=== PATIENT | female | born 1980 | race Caucasian/White ===

== ENCOUNTER → 2016-06-11 | Day surgery (SDC) | payer OTHER ==
[~2016-06-11] MED LIST: HYDROCODONE/APAP 5/325 TAB PO PRN; IBUPROFEN 600 MG TAB PO ONE; LIDOCAINE 1% 30 ML SDV SC PRN; LIDOCAINE 2% 5 ML SDV ONE; MIDAZOLAM 2 MG/2 ML VIAL IVP ONE; MIDAZOLAM 2 MG/2 ML VIAL ONE; ONDANSETRON 4 MG/2 ML VIAL ONE; PROPOFOL/EMULSION 500 MG/50 ML BOTTLE IV ONE; fentaNYL 100 MCG/2 ML INJ ONE; metroNIDAZOLE 500 MG TAB PO SCH
--- NOTE | 2016-06-11 19:26 | GHP ---
[f rep st] HISTORY AND PHYSICAL DATE OF ADMISSION: 06/11/2016 CHIEF COMPLAINT: Vaginal bleeding with known miscarriage. HISTORY OF PRESENT ILLNESS: The patient is a 36-year-old 3, para 1-0-1-1 female at 9 weeks a nd 1 day estimated gestational age by stated IVF dating at [facility], presents for a followup for a missed . The patient was diagnosed with a missed last week at her infertility clinic and then was seen at our clinic on June 08, 2016 at which time it was confirmed that she had a missed with a crown rump length measuring 0.45 cm consistent with 6 weeks and 1 day estimated gesta tional age with no cardiac activity seen. There was a significantly large subchorionic hemorrh age at that time measuring 9 x 5 cm surrounding the sac. She was having slight bleeding, which she h ad for the last 2-3 weeks of her , but was only very light in nature. She was offered treat ment options at that time and she desired to proceed with surgical management with a D and C, which w as scheduled for tomorrow, June 12, 2016. She represented today on the day of admission with ifrah rt that she thought she completed the miscarriage over the weekend. She reports that she had intense cramping and passage of significant amounts of brown clot and old hemorrhage after our visit last we ek, followed by heavy bleeding for the next 2 hours that then subsequently slowed down. She currentl y reports her bleeding has decreased significantly, only requiring a pad every 6 hours. She has no c ramping and has no other complaints. She denies any lightheadedness or dizziness. The patient was evaluated in clinic and found to have tissue at the os, which was removed with a ring forceps, that appeared globular consistent with a suspected gestational sac. After removal of that tissue, the cervical opening was only 1-2 mm open and no active bright red bleeding was initially not ed. An ultrasound was then done in clinic showing retained tissue with a heterogenous lining measuri ng 1.3 cm wide x 3.1 cm long on sagittal views. The endometrial stipe measures up to 2.1 cm at the m ost in thickness with a small, hypoechoic area measuring 1.2 cm, possibly consistent with a persisten t retained sac. There is no free fluid or adnexal masses. PAST MEDICAL HISTORY: Subglottic stenosis, repaired, celiac disease, ITP, hyperlipidemia, gluten int olerance, cervical dysplasia. PAST SURGICAL HISTORY: Balloon dilation of the trachea, delivery, appendectomy and LEEP. FAMILY HISTORY: Noncontributory. SOCIAL HISTORY: The patient is and denies any tobacco, alcohol or drug use. ALLERGIES: Gluten, ioversol, doxycycline, iodine and azithromycin. PHYSICAL EXAMINATION: VITAL SIGNS: Blood pressure 110/72, pulse 70, weight 138 pounds. GENERAL: N o acute distress, well-developed, well-nourished female. CARDIOVASCULAR: Regular rate and rhythm. CHEST: Clear to auscultation bilaterally. ABDOMEN: Soft and nontender. PELVIC: Speculum placed: Cervix was initially slightly dilated with tissue at the os which was removed and sent to pathology. Cervix then closed to 1 mm. No significant active bleeding noted. RADIOLOGY: Ultrasound results as described in HPI. ASSESSMENT: The patient is a 36-year-old 3, para 1-0-1-1 female with an incomplete , currently hemodynamically stable. She was counseled extensively regarding the recommendation to pro ceed with either medical management with misoprostol or surgical management with a suction D and C to remove the remaining tissue, blood and/or clot seen on ultrasound today. All the risks, benefits, i ndications and alternatives of each method were reviewed in length, and she desires to proceed with s urgical management tonight. PLAN: 1. Admit to labor and delivery for surgery. 2. Plan suction dilation and curettage to remove all remaining tissue. 3. Antibiotics: Plan Flagyl 500 mg IV on-call to the operating room and will continue with Flagyl 5 00 mg b.i.d. for 5 days total due to her allergy to doxycycline and azithromycin. 4. Blood type A positive. Will do type and screen and CBC on admission. 5. Counseling. The patient was counseled extensively and all questions answered. Consents were joanna musa reviewed for suction dilation and curettage during her prior visit and these were reviewed again and questions answered. All risks, benefits, indications and alternatives of the surgery were revie wed to include risks of infection, bleeding, uterine perforation, damage to surrounding structures an d organs and the benefit is completion of miscarriage. DISPOSITION: I have turned care over to my partner, Dr. Sadie iWlcox, and she is in discussion with Anesthesia as to when to proceed with the surgery. If she becomes unstable or the bleeding becomes heavy, will proceed urgently with the surgery as needed. /[id number]/MODL
[2016-06-11 22:24] LABS: % IMMATURE GRANULYOCYTES 0.2 % (0.0-1.1); ABSOLUTE IMMATURE GRANULOCYTES 0.01 10^3/uL (0.00-0.10); ADD DIFF? NO; ADD MORPH? NO; ADD SCAN? NO; ATYPICAL LYMPHOCYTE FLAG 40 (0-99); FRAGMENT RBC FLAG 0 (0-99); HEMATOCRIT 37.8 % (38.0-47.0); HEMOGLOBIN 13.5 g/dL (12.6-16.3); LEFT SHIFT FLG 0 (0-99); LIPEMIA HEMOLYSIS FLAG 90 (0-99); MEAN CELL HEMOGLOBIN 30.7 pg (27.9-34.1); MEAN CELL HEMOGLOBIN CONCENTR. 35.7 g/dL (32.4-36.7); MEAN CELL VOLUME 85.9 fL (81.5-99.8); MEAN PLATELET VOLUME 13.1 fL (8.7-11.7); PLATELET CLUMPS FLAG 0 (0-99); PLATELET COUNT 81 10^3/uL (150-400); RED CELL DISTRIBUTION WIDTH 13.4 % (11.5-15.2)
--- NOTE | 2016-06-11 23:41 | SUROPNOTE ---
[facility] Operative Report - Surgery Technical Sales Manager Procedure Note 06/11/16 Procedure: suction dilation and curettage Pre-operative diagnosis: Incomplete spontaneous Post-operative diagnosis: Same Anesthesia: MAC Anesthesiologist: Sophie Surgeon: Brenden Findings: small anteverted uterus. Cervix already dilated to ~ 9-10 mm. Dark blood and products of conception removed. EBL: Minimal Specimen: POC Fluids: 500 ml LR Indications: Patient is a 36 yo with an IVF found to be demised at 9 weeks gestation, with the pole measuring 6 weeks and a large subchorionic hemorrhage. She had been scheduled for surgical management tomorrow , but then presented to clinic today with spontaneous passage of tissue. Her cervix was dilated and the likely gestational sac was removed in the office. An US was done demonstrating the ongoing presence of blood clot and tissue in the uterus, so the recommendation was made to proceed with suction dilation and curettage for incomplete SAB. Rh positive. Details of procedure: Pt was brought to the operating room and a time out was performed. MAC anesthesia was induced. IV flagyl was given due to doxy/azithro allergy. She was prepped and draped in the normal sterile fashion, using chlohexidate externally and reinaldo soap in water internally due to her iodine allergy. She had previously emptied her bladder. The speculum was placed and single toothed tenaculum was placed on the anterior lip of the cervix and a paracervical block was performed, total of 20 ml 1% plain lidocaine. Her cervix was found to be already dilated enough to easily accommodate an 8 mm curette. The curette was introduced and suction was employed to empty the uterus. Dark blood clot and tissue was removed until the uterus was found to have a gritty texture throughout. All instruments were removed and hemostasis was noted after using silver nitrate on the tenaculum sites. counts correct x 2. Pt was awakened and brought to the recovery room in stable condition. Sadie Wilcox MD
== END | disposition home or self-care (01) ==
LOC: FOBOP 18:12 → UNDOADMOB 18:12 → FLD 18:12 → EDSTATUS 20:11
PROVIDERS: ATTEND Obstetrics & Gynecology
PROC: 10D17ZZ Extraction of Products of Conception, Retained, Via Natural or Artificial Opening (ICD-10-PCS; principal; 2016-06-11)
DX: O03.1 Delayed or excessive hemorrhage following incomplete spontaneous abortion (principal); J98.8 Other specified respiratory disorders
CPT/HCPCS: J2250; J2405; J2704; J3010

== ENCOUNTER → 2016-08-18 | Outpatient (CLI) | payer OTHER | LOC: BMCIMAGING 15:48 | PROVIDERS: ATTEND Family Medicine | DX: S99.922A Unspecified injury of left foot, initial encounter (principal) ==

== ENCOUNTER 2017-05-03 16:14 | Emergency (ER) | payer OTHER ==
[2017-05-03] MEDS ORDERED: NS 1,000 ML IV ONE (16:45)
[2017-05-03] MEDS ORDERED: ONDANSETRON 4 MG/2 ML VIAL IVP ONE (16:45)
[2017-05-03] MEDS ORDERED: fentaNYL 100 MCG/2 ML INJ IVP ONE (16:45)
--- NOTE | 2017-05-03 16:48 | EDPHY ---
H & P Time Seen by Provider: 05/03/17 16:33 HPI/ROS: CHIEF COMPLAINT: Abdominal pain HISTORY OF PRESENT ILLNESS: 37-year-old woman with previous history of appendectomy presents with lower abdominal pain since Saturday of this week. She started getting bilateral or middle pelvic pain earlier this week and she says she does not think it is intestinal. It is not associated with urinary symptoms or vaginal bleeding or discharge or vomiting or diarrhea. Today since about 3:00 p.m. it started radiating up to just above her umbilicus associated with worsening pain and some nausea. No recent injury. No recent fall or trauma. Symptoms moderate to severe at this time. REVIEW OF SYSTEMS: Eye: no change in vision ENT: no sore throat Cardiac: no chest pain or syncope Pulmonary: no cough or SOB Abdomen: HPI Musculoskeletal: no back pain Skin: no rash Neuro: no headache Constitutional: no fever : no urinary symptoms A comprehensive 10 point review of systems is otherwise negative aside from elements mentioned in the history of present illness. PAST MEDICAL HISTORY: Appendectomy, wisdom teeth removal, idiopathic thrombocytopenia with platelet count [id number] last week, celiac disease. Social history: No alcohol, nonsmoker General Appearance: Alert and conversant, cooperative. Eyes: No scleral icterus. ENT, Mouth: Normal mucous membranes. Respiratory: Normal respiratory effort, breath sounds equal, lungs are clear to auscultation. Cardiovascular: Regular rate and rhythm. Gastrointestinal: No rebound or guarding. Bowel sounds present. Negative Porras sign. No upper abdominal tenderness above the umbilicus. Nontender to deep palpation. Neurological: Alert and oriented x3. Normally conversant. Face symmetric, normal movement and sensation in all extremities. Skin: Warm and dry, no rashes. Musculoskeletal: No peripheral edema and no joint swelling. Psychiatric: Not agitated. Emergency Department course/MDM: Plan for fentanyl 100 mcg IV and Zofran 4 mg IV, pelvic ultrasound discussed and consented. Urinalysis. 1800: Results discussed, feels better, possibly related to her corpus luteum cyst. Toradol 15 mg IV, discharge with symptomatic control and outpatient follow-up. Negative test, has already had her appendix out, I think PID or bowel obstruction or UTI are unlikely. Patient says she is comfortable going home with symptomatic treatment, which I think is reasonable. Smoking Status: Never smoked Constitutional: Initial Vital Signs Temperature (C) 36.5 C 05/03/17 16:23 Heart Rate 85 05/03/17 16:23 Respiratory Rate 16 05/03/17 16:23 Blood Pressure 131/74 H 05/03/17 16:23 O2 Sat (%) 100 05/03/17 16:23 O2 Delivery Mode Room Air Allergies/Adverse Reactions: doxycycline Allergy (Verified 05/03/17 16:22) Abdominal Cramping gluten Allergy (Verified 05/03/17 16:22) iodine Allergy (Verified 05/03/17 16:22) ioversol Allergy (Verified 05/03/17 16:22) contrast Allergy (Intermediate, Uncoded 05/03/17 16:22) Hives Home Medications: Medication Instructions Recorded NK [No Known Home Meds] 05/03/17 Medical Decision Making - Diagnostics Imaging Results: Imaging Impressions Pelvic/Renal Ultrasound 05/03/17 16:45 Impression: Right corpus luteum and paraovarian cysts, as above. Trace free fluid which is nonspecific. Dr. Varghese discussed these findings by telephone with CARMELA JAVIER on 2016 at 17:43. Differential Diagnosis: Differential considered including but not limited to ovarian torsion, ovarian cyst, ectopic , PID, UTI or renal colic, bowel obstruction. - Data Points Laboratory Results: Laboratory Results 05/03/17 16:44 05/03/17 16:44 05/03/17 05/03/17 05/03/17 17:08 16:44 16:44 WBC RBC Hgb Hct MCV MCH MCHC RDW Plt Count MPV Neut % (Auto) Lymph % (Auto) [place] % (Auto) Eos % (Auto) Baso % (Auto) Nucleat RBC Rel Count Absolute Neuts (auto) Absolute Lymphs (auto) Absolute Monos (auto) Absolute Eos (auto) Absolute Basos (auto) Absolute Nucleated RBC Immature Gran % Immature Gran # Sodium 142 mEq/L mEq/L (134-144) Potassium 3.7 mEq/L mEq/L (3.5-5.2) Chloride 105 mEq/L mEq/L (97-110) Carbon Dioxide 23 mEq/l mEq/l (22-31) Anion Gap 14 mEq/L mEq/L (8-16) BUN 20 mg/dL mg/dL (7-23) Creatinine 0.7 mg/dL mg/dL (0.6-1.0) Estimated GFR > 60 Glucose 97 mg/dL mg/dL (70-100) Calcium 9.6 mg/dL mg/dL (8.5-10.4) Beta HCG, Qual NEGATIVE Urine Color YELLOW Urine Appearance CLEAR Urine pH 6.0 (5.0-7.5) Ur Specific [place] 1.018 (1.002-1.030) Urine Protein NEGATIVE (NEGATIVE) Urine Ketones NEGATIVE (NEGATIVE) Urine Blood 1+ H (NEGATIVE) Urine Nitrate NEGATIVE (NEGATIVE) Urine Bilirubin NEGATIVE (NEGATIVE) Urine Urobilinogen NEGATIVE EU EU (0.2-1.0) Ur Leukocyte Esterase NEGATIVE (NEGATIVE) Urine RBC 1-3 /hpf /hpf (0-3) Urine WBC 1-3 /hpf /hpf (0-3) Ur Epithelial Cells TRACE /lpf /lpf (NONE-1+) Urine Glucose NEGATIVE (NEGATIVE) 05/03/17 16:44 WBC 7.50 10^3/uL 10^3/uL (3.80-9.50) RBC 4.72 10^6/uL 10^6/uL (4.18-5.33) Hgb 14.9 g/dL g/dL (12.6-16.3) Hct 41.0 % % (38.0-47.0) MCV 86.9 fL fL (81.5-99.8) MCH 31.6 pg pg (27.9-34.1) MCHC 36.3 g/dL g/dL (32.4-36.7) RDW 12.1 % % (11.5-15.2) Plt Count 143 10^3/uL L 10^3/uL (150-400) MPV 10.9 fL fL (8.7-11.7) Neut % (Auto) 57.3 % % (39.3-74.2) Lymph % (Auto) 34.3 % % (15.0-45.0) [place] % (Auto) 5.9 % % (4.5-13.0) Eos % (Auto) 2.1 % % (0.6-7.6) Baso % (Auto) 0.3 % % (0.3-1.7) Nucleat RBC Rel Count 0.0 % % (0.0-0.2) Absolute Neuts (auto) 4.30 10^3/uL 10^3/uL (1.70-6.50) Absolute Lymphs (auto) 2.57 10^3/uL 10^3/uL (1.00-3.00) Absolute Monos (auto) 0.44 10^3/uL 10^3/uL (0.30-0.80) Absolute Eos (auto) 0.16 10^3/uL 10^3/uL (0.03-0.40) Absolute Basos (auto) 0.02 10^3/uL 10^3/uL (0.02-0.10) Absolute Nucleated RBC 0.00 10^3/uL 10^3/uL (0-0.01) Immature Gran % 0.1 % % (0.0-1.1) Immature Gran # 0.01 10^3/uL 10^3/uL (0.00-0.10) Sodium Potassium Chloride Carbon Dioxide Anion Gap BUN Creatinine Estimated GFR Glucose Calcium Beta HCG, Qual Urine Color Urine Appearance Urine pH Ur Specific [place] Urine Protein Urine Ketones Urine Blood Urine Nitrate Urine Bilirubin Urine Urobilinogen Ur Leukocyte Esterase Urine RBC Urine WBC Ur Epithelial Cells Urine Glucose Medications Given: Discontinued Medications Fentanyl (Sublimaze) 100 mcg IVP EDNOW ONE Stop: 05/03/17 16:46 Last Admin: 05/03/17 17:02 Dose: 100 mcg Sodium Chloride (Ns) 1,000 mls @ 0 mls/hr IV EDNOW ONE; Wide Open PRN Reason: Protocol Stop: 05/03/17 16:46 Last Admin: 05/03/17 17:02 Dose: 1,000 mls Ketorolac Tromethamine (Toradol) 15 mg IVP EDNOW ONE Stop: 05/03/17 18:01 Last Admin: 05/03/17 18:12 Dose: 15 mg Ondansetron HCl (Zofran) 4 mg IVP EDNOW ONE Stop: 05/03/17 16:46 Last Admin: 05/03/17 17:02 Dose: 4 mg Departure - Departure Disposition: Home, Routine, Self-Care Clinical Impression: Ovarian cyst Qualifiers: Laterality: right Qualified Code(s): N83.201 - Unspecified ovarian cyst, right side Condition: Good Instructions: Ovarian Cyst (ED) Additional Instructions: test negative. Ultrasound shows corpus luteum cyst 2.3 cm in largest diameter and a right para ovarian simple cyst 2.3 cm in largest diameter. Oral ibuprofen 600 mg every 8 hr for the next 3 days. Please return for fever, worsening pain, any new symptoms. Referrals: Zuleyka Castillo PA [Primary Care Provider] - As per Instructions
[2017-05-03 16:51] LABS: % IMMATURE GRANULYOCYTES 0.1 % (0.0-1.1); ABSOLUTE IMMATURE GRANULOCYTES 0.01 10^3/uL (0.00-0.10); ADD DIFF? NO; ADD MORPH? NO; ADD SCAN? NO; ATYPICAL LYMPHOCYTE FLAG 0 (0-99); FRAGMENT RBC FLAG 0 (0-99); HEMOGLOBIN 14.9 g/dL (12.6-16.3); LEFT SHIFT FLG 0 (0-99); LIPEMIA HEMOLYSIS FLAG 90 (0-99); MEAN CELL HEMOGLOBIN 31.6 pg (27.9-34.1); MEAN CELL HEMOGLOBIN CONCENTR. 36.3 g/dL (32.4-36.7); MEAN CELL VOLUME 86.9 fL (81.5-99.8); MEAN PLATELET VOLUME 10.9 fL (8.7-11.7); PLATELET CLUMPS FLAG 0 (0-99); PLATELET COUNT 143 10^3/uL (150-400); RED BLOOD CELL COUNT 4.72 10^6/uL (4.18-5.33); RED CELL DISTRIBUTION WIDTH 12.1 % (11.5-15.2)
[2017-05-03 17:04] LABS: ANION GAP 14 mEq/L (8-16); CALCIUM 9.6 mg/dL (8.5-10.4); CARBON DIOXIDE 23 mEq/l (22-31); CHLORIDE 105 mEq/L (97-110); CREATININE 0.7 mg/dL (0.6-1.0); GLOMERULAR FILTRATION RATE > 60; GLUCOSE 97 mg/dL (70-100); POTASSIUM 3.7 mEq/L (3.5-5.2); SODIUM 142 mEq/L (134-144)
[2017-05-03 17:18] LABS: COLOR YELLOW; LEUKOCYTE ESTERASE,URINE NEGATIVE (NEGATIVE); NITRITE,URINE NEGATIVE (NEGATIVE)
[2017-05-03] MEDS ORDERED: KETOROLAC 30 MG/1 ML SDV IVP ONE (18:00)
[2017-05-03 18:17] VITALS: BP 103/63; PULSE 73; RESP 18; TEMP 98.6; O2SAT 98
== END 2017-05-03 18:41 | disposition home or self-care (01) ==
DX: N83.201 Unspecified ovarian cyst, right side (principal); E86.9 Volume depletion, unspecified; Z90.49 Acquired absence of other specified parts of digestive tract
CPT/HCPCS: 96374; J1885; J2405; J3010

== ENCOUNTER 2017-07-24 18:41 | Emergency (ER) | payer OTHER ==
[2017-07-24 18:47] VITALS: RESP 16; TEMP 98.6
--- NOTE | 2017-07-24 20:14 | EDPHY ---
H & P Smoking Status: Never smoked Time Seen by Provider: 07/24/17 19:10 HPI/ROS: CHIEF COMPLAINT: Abdominal pain, HISTORY OF PRESENT ILLNESS: 37-year-old female presents to the emergency department with lower abdominal discomfort. She is approximately 8 and half weeks via IVF. She saw her OBGYN yesterday and had an ultrasound in the office. She states "everything was fine". She does have a known history of a subchorionic hemorrhage 2 weeks ago. She had some vaginal bleeding associated with this however this has since resolved. She is 4 para 1 AB 2. She states that the lower abdominal discomfort is similar to when she had a urinary tract infection with 1 of her pregnancies. She initially went to urgent care earlier today and was sent to the emergency department for further evaluation. She denies urinary frequency, dysuria, hematuria. Denies back pain. No fevers or chills. No vaginal bleeding or spotting. No reported trauma. REVIEW OF SYSTEMS: Constitutional: No fever, no chills. Eyes: No double or blurry vision. ENT: No sore throat. Respiratory: No cough, no shortness of breath. Cardiac: No chest pain. Gastrointestinal: Abdominal pain as above. No vomiting or diarrhea. Genitourinary: No dysuria. Musculoskeletal: No neck or back pain. Skin: No rashes. Neurological: No headache. (Julienne Flores) Past Medical/Surgical History: 4 para 1 AB 2, ITP (Julienne Flores) Social History: (Julienne Flores) Physical Exam: General Appearance: Alert, no distress. Afebrile. Vital signs are stable. Eyes: Pupils equal and round. Extraocular motions are all intact. ENT: Mouth: Mucous membranes moist. Respiratory: No wheezing, rhonchi, or rales, lungs are clear to auscultation. Cardiovascular: Regular rate and rhythm. Gastrointestinal: Abdomen is soft and nontender, no masses, no rebound or guarding, bowel sounds normal. No CVA tenderness bilaterally. Neurological: Alert and oriented x 3, cranial nerves II through XII grossly intact Skin: Warm and dry, no rashes. Musculoskeletal: Nontender to palpate along the cervical, thoracic or lumbar spine. Neck is supple. Extremities: Full range of motion and no peripheral edema. Psychiatric: Patient is oriented X 3, there is no agitation. (Julienne Flores) Constitutional: Initial Vital Signs Temperature (C) 37 C 07/24/17 18:44 Heart Rate 84 07/24/17 18:44 Respiratory Rate 16 07/24/17 18:44 Blood Pressure 118/77 07/24/17 18:44 O2 Sat (%) 98 07/24/17 18:44 O2 Delivery Mode Room Air Allergies/Adverse Reactions: doxycycline Allergy (Verified 07/24/17 18:42) Abdominal Cramping gluten Allergy (Verified 07/24/17 18:42) iodine Allergy (Verified 07/24/17 18:42) ioversol Allergy (Verified 07/24/17 18:42) contrast Allergy (Intermediate, Uncoded 05/03/17 16:22) Hives Home Medications: Medication Instructions Recorded Endometrin 07/24/17 Estradiol Transdermal Patch 07/24/17 07/24/17 Progesterone in Oil 07/24/17 Medical Decision Making - Diagnostics Imaging: Discussed imaging studies w/ inbound call center agent Radiologist - Diagnostics Imaging Results: Imaging Impressions Obstetrics Ultrasound 07/24/17 20:22 Impression: 1. There is a single viable intrauterine gestation at 8 weeks 3 days, which is concordant with the age anticipated by IVF. 2. There is a fundal subchorionic hemorrhage measuring 0.4 x 2.4 x 1.7 cm. 3. There is a right paraovarian simple cyst, and a left ovarian follicular cyst , with no torsion. Findings were discussed with JULIENNE FLORES PA-C at 21:54, on 07/24/2017. ED Course/Re-evaluation: 37-year-old female presents to the emergency department with lower abdominal discomfort. She is approximately 8 half weeks . Patient was able to provide a urine specimen which revealed no signs of infection. Pelvic ultrasound was obtained which revealed intrauterine measuring 8 weeks 3 days with a heart rate of 172. She has a subchorionic hemorrhage measuring 2.4 cm. She has simple cysts in both the left and the right ovary. Her laboratory studies were all unremarkable. She has a quantitative HCG of over 87,000. She has A positive blood type. I encouraged patient have close follow-up with her OBGYN. She will return to the emergency department if she has any other change in symptoms, vaginal bleeding, or if she feels worse in any way. (Julienne Flores) Differential Diagnosis: Including but not limited to ovarian cyst, ovarian torsion, ectopic , intrauterine , urinary tract infection, pyelonephritis (Julienne Flores ) Other Provider: PHYSICIAN DOCUMENTATION: The patient was evaluated and managed by the Physician Director Of [employer]. My co- signature indicates that I have reviewed this chart and I agree with the findings and plan of care as documented. I am the secondary supervising physician. (Ankur Dangelo) - Data Points Laboratory Results: Laboratory Results 07/24/17 20:45 07/24/17 20:45 07/24/17 07/24/17 07/24/17 20:45 20:45 18:55 WBC 8.53 10^3/uL 10^3/uL (3.80-9.50) RBC 4.91 10^6/uL 10^6/uL (4.18-5.33) Hgb 14.9 g/dL g/dL (12.6-16.3) Hct 41.9 % % (38.0-47.0) MCV 85.3 fL fL (81.5-99.8) MCH 30.3 pg pg (27.9-34.1) MCHC 35.6 g/dL g/dL (32.4-36.7) RDW 12.0 % % (11.5-15.2) Plt Count 139 10^3/uL L 10^3/uL (150-400) MPV 11.8 fL H fL (8.7-11.7) Neut % (Auto) 62.0 % % (39.3-74.2) Lymph % (Auto) 29.1 % % (15.0-45.0) [place] % (Auto) 6.3 % % (4.5-13.0) Eos % (Auto) 2.0 % % (0.6-7.6) Baso % (Auto) 0.2 % L % (0.3-1.7) Nucleat RBC Rel Count 0.0 % % (0.0-0.2) Absolute Neuts (auto) 5.29 10^3/uL 10^3/uL (1.70-6.50) Absolute Lymphs (auto) 2.48 10^3/uL 10^3/uL (1.00-3.00) Absolute Monos (auto) 0.54 10^3/uL 10^3/uL (0.30-0.80) Absolute Eos (auto) 0.17 10^3/uL 10^3/uL (0.03-0.40) Absolute Basos (auto) 0.02 10^3/uL 10^3/uL (0.02-0.10) Absolute Nucleated RBC 0.00 10^3/uL 10^3/uL (0-0.01) Immature Gran % 0.4 % % (0.0-1.1) Immature Gran # 0.03 10^3/uL 10^3/uL (0.00-0.10) Sodium 136 mEq/L mEq/L (135-145) Potassium 5.1 mEq/L mEq/L (3.5-5.2) Chloride 108 mEq/L mEq/L (97-110) Carbon Dioxide 20 mEq/l L mEq/l (22-31) Anion Gap 8 mEq/L mEq/L (8-16) BUN 10 mg/dL mg/dL (7-23) Creatinine 0.5 mg/dL L mg/dL (0.6-1.0) Estimated GFR > 60 Glucose 104 mg/dL H mg/dL (70-100) Calcium 9.1 mg/dL mg/dL (8.5-10.4) Beta HCG, Quant 82226.00 mIU/mL H mIU/mL (0.00-4.83) Specimen Hemolysis 185 Urine Color PALE YELLOW Urine Appearance CLEAR Urine pH 6.0 (5.0-7.5) Ur Specific [place] 1.008 (1.002-1.030) Urine Protein NEGATIVE (NEGATIVE) Urine Ketones TRACE H (NEGATIVE) Urine Blood NEGATIVE (NEGATIVE) Urine Nitrate NEGATIVE (NEGATIVE) Urine Bilirubin NEGATIVE (NEGATIVE) Urine Urobilinogen NEGATIVE EU EU (0.2-1.0) Ur Leukocyte Esterase NEGATIVE (NEGATIVE) Urine RBC 1-3 /hpf /hpf (0-3) Urine WBC 1-3 /hpf /hpf (0-3) Ur Epithelial Cells TRACE /lpf /lpf (NONE-1+) Urine Glucose NEGATIVE (NEGATIVE) Departure - Departure Disposition: Home, Routine, Self-Care Clinical Impression: Abdominal pain Qualifiers: Abdominal location: lower abdomen, unspecified Qualified Code(s): R10.30 - Lower abdominal pain, unspecified Qualifiers: Weeks of gestation: 8 weeks Qualified Code(s): Z3A.08 - 8 weeks gestation of Condition: Good Instructions: (ED), Acute Abdominal Pain (ED) Additional Instructions: Follow-up with your OBGYN as scheduled. Return to the emergency department if you developed worsening abdominal pain, vaginal bleeding or spotting, or if you feel worse in any way. Referrals: Adelfo Tsai MD [Primary Care Provider] - As per Instructions
[2017-07-24 21:15] LABS: PLATELET COUNT 139 10^3/uL (150-400)
[2017-07-24 22:16] VITALS: BP 94/50; PULSE 78; O2SAT 97
== END 2017-07-24 22:17 | disposition home or self-care (01) ==
DX: O26.891 Other specified pregnancy related conditions, first trimester (principal); R10.30 Lower abdominal pain, unspecified; Z3A.08 8 weeks gestation of pregnancy

== ENCOUNTER → 2017-08-22 | Outpatient (CLI) | payer OTHER | LOC: FIMAGING 11:55 | PROVIDERS: ATTEND Obstetrics & Gynecology | DX: O09.521 Supervision of elderly multigravida, first trimester (principal); O09.811 Supervision of pregnancy resulting from assisted reproductive technology, first trimester; Z3A.12 12 weeks gestation of pregnancy; Z98.891 History of uterine scar from previous surgery ==

== ENCOUNTER → 2017-10-07 | Outpatient (CLI) | payer OTHER | LOC: FIMAGING 11:56 | PROVIDERS: ATTEND Obstetrics & Gynecology | DX: O09.522 Supervision of elderly multigravida, second trimester (principal); O09.812 Supervision of pregnancy resulting from assisted reproductive technology, second trimester; J38.6 Stenosis of larynx; Z3A.19 19 weeks gestation of pregnancy; Z98.891 History of uterine scar from previous surgery ==

== ENCOUNTER → 2017-10-29 | Outpatient (CLI) | payer OTHER | LOC: FIMAGING 10:11 | PROVIDERS: ATTEND Obstetrics & Gynecology | DX: O09.522 Supervision of elderly multigravida, second trimester (principal); O09.812 Supervision of pregnancy resulting from assisted reproductive technology, second trimester; Z3A.22 22 weeks gestation of pregnancy ==

== ENCOUNTER → 2018-04-25 | Outpatient (CLI) | payer OTHER ==
[~2018-04-25] MED LIST changes: +GADOBUTROL 10 ML VIAL IVP ONE; -HYDROCODONE/APAP 5/325 TAB PO PRN; -IBUPROFEN 600 MG TAB PO ONE; -LIDOCAINE 1% 30 ML SDV SC PRN; -LIDOCAINE 2% 5 ML SDV ONE; -MIDAZOLAM 2 MG/2 ML VIAL IVP ONE; -MIDAZOLAM 2 MG/2 ML VIAL ONE; -ONDANSETRON 4 MG/2 ML VIAL ONE; -PROPOFOL/EMULSION 500 MG/50 ML BOTTLE IV ONE; -fentaNYL 100 MCG/2 ML INJ ONE; -metroNIDAZOLE 500 MG TAB PO SCH
== END ==
LOC: FIMAGING 06:47
PROVIDERS: ATTEND Obstetrics & Gynecology
DX: R60.9 Edema, unspecified (principal)
CPT/HCPCS: A9585